=== PATIENT | female | born 2000 | race African-American/Black ===

== ENCOUNTER → 2023-05-07 | Outpatient (CLI) | payer OTHER | LOC: M RAD 14:39 | PROVIDERS: ATTEND Physician Assistant Medical | DX: R22.0 Localized swelling, mass and lump, head (principal); R93.89 Abnormal findings on diagnostic imaging of other specified body structures ==

== ENCOUNTER 2023-05-11 21:49 | Emergency (ER) | payer OTHER ==
[~2023-05-11] VITALS: Ht 170.2 cm; Wt 81.1 kg
[2023-05-11 21:50] VITALS: BP 124/72; TEMP 98.4; O2SAT 99
== END 2023-05-11 23:12 | disposition left against medical advice (07) ==
LOC: M ED 21:49
DX: Z53.21 Procedure and treatment not carried out due to patient leaving prior to being seen by health care provider (principal)